=== PATIENT | female | born 1945 | race Caucasian/White ===

== ENCOUNTER 2016-05-15 08:42 | Outpatient (CLI) | payer MEDICARE, BC ==
[~2016-05-15] VITALS: Ht 157.5 cm; Wt 43.6 kg
--- NOTE | ~2016-05-15 | HEMODYNAMI ---
PATIENT:ADEN ROBERT MEDICAL RECORD: [id number] : 47 LOCATION:D[facility] ADMISSION DATE: 05/15/16 Generatedon:05/15/201613:29 Patient name: ADEN ROBERT Patient #: [id number] SSN: [id number] : 1945 Date of study: 05/15/2016 Page: Of Hemodynamic Procedure Report Patient Data Patient Demographics Procedure consent was obtained First Name: ADEN Gender: Female Last Name: JAKOB : 1945 Middle Initial: L Age: 71 year(s) Patient #: [id number] Race: SSN: [id number] Additional ID: [id number] Contact details Address: [address] [place] [address] State: [place] City: [place] Zip code: [address] Past Medical History Allergies Allergen Reaction Date Comments Reported Other allergy 05/15/2016 Dilaudid/pain meds Admission Admission Data Admission Date: 05/15/2016 Admission Time: 8:42 Arrival Date: 05/15/2016 Arrival Time: 11:00 Admit Source: Other Insurance Payor: Medicare Height (in.): 64 BSA: 1.43 (m2) Height (cm.): 162.56 BMI: 16.48 (kg/m2) Weight (lbs.): 96 Weight (kg.): 43.54 Lab Results Lab Result Date: 05/15/2016 Lab Result Time: 0:00 Biochemistry Name Units Result Min Max BUN mg/dl 14 --(--*-)-- 7 18 Creatinine mg/dl 0.9 --(-*--)-- 0.6 1.3 CBC Name Units Result Min Max Hemoglobin g/dl 15 --(-*--)-- 13.5 17.5 Procedure Procedure Types Cath Procedure Diagnostic Procedure PPM/ICD Permanent Pacer Generator Exg. Procedure Description Procedure Date Procedure Date: 05/15/2016 Procedure Start Time: 12:14 Procedure Staff Name Function Citlali Alcantar RT Monitor Buffie Del Rosario RN Nurse Travis Blandon MD Performing Physician Huseyin Nieto MD Assisting physician Tresa Sanchez RT Scrub Procedure Data Cath Procedure Estimated blood loss: 0 ml Procedure Complications No complications Procedure Medications Medication Administration Route Dosage Ancef (1Gm/50ml NS) I.V.P.B 1 g Ancef Irrigation Topical 1 g (1gm/500ml NS) Zofran I.V. 4 mg Versed I.V. 1 mg Versed I.V. 1 mg Hemodynamics Rest BSA: 1.43 (m2) HGB: 15 (g/dl) O2 Consumption: Estimated: 123.35 (ml/min) O2 Cons umption indexed: Estimated:86.26 (ml/min/m) Heart Rate: 54 (bpm) Snapshots Pre Cath Intra NCS Post Cath Vital Signs Time Heart Resp SPO2 NIBP (mmHg) Rhythm Pain Sedation Rate (ipm) (%) Status Level (bpm) 11:57:42 54 17 99 134/66(100) NSR 0 (11) 10(A) , No pain 12:02:00 54 21 98 137/61(93) NSR 0 (11) 10(A) , No pain 12:06:14 54 19 99 141/61(87) NSR 0 (11) 10(A) , No pain 12:10:32 54 16 99 122/56(94) NSR 0 (11) 10(A) , No pain 12:14:40 54 18 98 126/63(100) NSR 0 (11) 10(A) , No pain 12:18:50 59 19 96 130/64(79) NSR 0 (11) 10(A) , No pain 12:23:06 61 19 99 117/53(78) NSR 0 (11) 10(A) , No pain 12:27:15 62 22 99 119/52(77) NSR 0 (11) 10(A) , No pain 12:31:28 85 15 99 107/53(80) NSR 0 (11) 10(A) , No pain 12:35:33 60 18 100 120/55(80) NSR 0 (11) 10(A) , No pain Medications Time Medication Route Dose Verified Delivered Reason Notes Effe ctiveness by by 11:50:27 Ancef I.V.P.B 1 g Travis Emanuelie used for (1Gm/50ml [facility] Connor Del Rosario RN procedure NS) 11:50:39 Ancef Topical 1 g Travis Emanuelie used for Irrigation St. Connor Del Rosario RN procedure (1gm/500ml NS) 12:05:39 Zofran I.V. 4 mg Travis Emanuelie Per pt has [facility]. Connor Del Rosario RN physician nausea with MD medications 12:13:01 Versed I.V. 1 mg Travis Buffie for [facility] Connor Del Rosario RN sedation 12:20:03 Versed I.V. 1 mg [address] [facility] Connor Del Rosario RN sedation Procedure Log Time Note 11:38:14 Pina Del Rosario RN sent for patient. Start room use. 11:38:19 Time tracking: Regular hours 11:38:23 Plan of Care:Hemodynamics will remain stable., Cardiac rhythm will remain stable., Comfort level will be maintained., Respiratory function will remain adequate., Patient/ family verbilizes understanding of procedure., Procedure tolerated without complication., Recovers from procedure without complications.. 11:45:58 Diagnostic Cath Status : Elective 11:46:27 Informed consent obtained and on chart 11:47:02 Patient Height : 162.56 inches 11:47:12 Patient Weight : 43.54 lbs 11:47:58 Arrival Date: 05/15/2016 11:00:00 AM 11:48:04 Insurance Payor : Medicare 11:48:05 Admit Source: Other 11:50:03 Lab Result : Hemoglobin 15 g/dl 11:50:03 Lab Result : Creatinine 0.9 mg/dl 11:50:03 Lab Result : BUN 14 mg/dl 11:50:10 Patient received from Outpatients to [facility] 2 Alert and oriented. Tansferred to table in Supine position. 11:50:11 Correct patient and procedure confirmed by team. 11:50:11 Warm blankets applied, and fouzia hugger turned on for patient comfort. 11:50:12 ECG and BP/O2 sat monitors applied to patient. 11:50:27 Ancef (1Gm/50ml NS) 1 g I.V.P.B was given by Pina Del Rosario RN; used for procedure; 11:50:39 Ancef Irrigation (1gm/500ml NS) 1 g Topical was given by Pina Del Rosario RN; used for procedure; 11:56:26 Vital chart was started 11:56:39 Baseline sample Acquired. 11:56:50 Rhythm: paced 11:56:52 Full Disclosure recording started 11:57:19 H&P Date Dictated: 05/08/2016 Within 30 days and on chart., H&P Addendum completed by physician on day of procedure. (MUST COMPLETE FOR ALL OUTPATIENTS). 11:57:21 Pre-procedure instructions explained to patient. 11:57:22 Family in waiting room. 11:57:25 Patient NPO since Midnight. 11:58:26 Patient allergic to Other allergyDilaudid/pain meds 11:59:55 Is patient on blood thinner?No 12:00:16 Patient diabetic? No. 12:00:29 Snore? No 12:03:21 IV patent on arrival in right forearm with 0.9% NaCl at [facility]. 12:03:24 Lab results completed and on chart. 12:03:32 Left chest area was prepped with chlora-prep and draped in sterile fashion 12:03:41 Alarms reviewed by R. N. 12:03:42 Sharps counted by scrub and verified by R.N. 12:04:47 Medtronic Adapta PPM Dual Generator opened to sterile field. 12:05:39 Zofran 4 mg I.V. was given by Pina Del Rosario RN; Per physician; pt has nausea with medications 12:06:23 Use device set Pacemaker Set 12:06:25 Mepilex Dressing opened to sterile field. 12:06:27 3.0 Vicryl Multipack [id number] opened to sterile field. 12:06:28 5.0 Monocryl PS2 [id number] opened to sterile field. 12:07:22 Previous problem with sedation/anesthesia? Yes NAUSEA 12:07:27 Sleep apnea? No 12:07:29 Deviated septum? No 12:07:30 Opens mouth fully? Yes 12:07:31 Sticks out tongue? Yes 12:07:33 Airway obstruction? No ? 12:07:36 Dentures? No ? 12:11:51 Physician arrived 12:11:59 --------ALL STOP TIME OUT------ 12:12:00 Final Timeout: patient, procedure, and site verified with staff and physician. All members of the team are in agreement. 12:12:03 Left chest site verified by team. 12:12:19 Physical assessment completed. ASA score P 2 - A patient with mild systemic disease as per Huseyin Nieto MD. 12:12:33 Sedation plan: IV Moderate Sedation Versed, Fentanyl 12:13:01 Versed 1 mg I.V. was given by Pina Del Rosario RN; for sedation; 12:14:35 Procedure started. 12:15:09 Medtronic contact representative David Garcia present for procedure. 12:15:20 Grounding pad site Left thigh. 12:15:25 Grounding pad site free from injury. 12:15:35 Lidocaine 1% w/epi to left subclavicular area by Huseyin Nieto MD. 12:15:38 Incision made to left subclavicular area. 12:15:43 Generator pocket made/opened. 12:20:03 Versed 1 mg I.V. was given by Pina Del Rosario RN; for sedation; 12:24:28 PPM Dual was attached to lead(s) and inserted into pocket. 12:24:38 Device pocket was irrigated with Ancef. 12:24:55 Generator was sutured in place with 3-0 vicryl. 12:25:08 Subcutaneous closure was completed with 3-0 vicryl. 12:25:25 Skin closure was completed with 5-0 monocryl. 12:26:16 Parameters--Ventricular P/R Wave: 7.6mV. Current: 0.2mA; Threshold: 0.2V; Impedence: 721OHMS. 12:26:40 Parameters--Atrial P/R Wave: 3.4mV. Current: 0.7mA; Threshold: 0.4V; Impedence: 524OHMS. 12:30:54 Lt Chest incision was dressed with Mepilex dressing. 12:38:02 Vital chart was stopped 12:38:05 Full Disclosure recording stopped 12:38:52 Procedure ended.(Physican Out) 12:40:13 Insertion/operative site no bleeding no hematoma. 12:40:16 Post Procedure Pulses reassessed and unchanged 12:40:21 Post procedure rhythm: unchanged. 12:40:24 Estimated blood loss: 0 ml 12:41:01 End room use (Document Last) 12:41:26 Post procedure instruction explained to patient.Patient verbalizes understanding. 12:41:27 Patient needs reinforcement of post procedure teaching. 12:41:39 Procedure and supply charges have been captured, reviewed, submitted and are correct. 12:41:45 Procedure Complication : No complications 12:41:47 See physician's report for complete and final results. 12:41:55 Report given to Pre/Post Procedure Room. 12:41:58 Patient transfered to Pre/Post Procedure Room with Stretcher. Device Usage Item Name Manufacture Quantity Catalog Hospital Part Current Minimal Lot# / Number Charge Number Stock Stock Serial# Code Medtronic Medtronic 1 [id number] 5 [id number] Adapta EXP PPM Dual 08-27 Generator Mepilex Cardinal 1 [id number] [id number] 5 Dressing Health 3.0 Ethicon 1 [id number] 379160 5 Vicryl Multipack [id number] 5.0 Ethicon 1 [id number] [id number] [id number] [id number] 5 Monocryl PS2 Y495G Signature Audit [place] Stage Time Signature Unsigned Intra-Procedure 05/15/2016 Citlali Alcantar Saima Counts 12:37:59 PM RT(R) RT(R) 05/15/2016 1:23:40 PM Intra-Procedure 05/15/2016 Citlali Alcantar 1:28:56 PM RT(R) Signatures Monitor : Citlali Alcantar RT Signature : Date : Time : [address] [address]
[2016-05-15] MEDS ORDERED: ATIVAN2 MG PO (09:14)
[2016-05-15] MEDS ORDERED: BUTALBITAL-ASP-1 CAP PO (09:14)
[2016-05-15 09:30] VITALS: BP 126/59; Ht 157.5 cm; Wt 43.6 kg
[2016-05-15 09:31] LABS: HEMATOCRIT 44.3 % (36.0-48.0); MCH 31.8 pg (26.0-34.0); MCHC 33.9 g/dL (31.0-37.0); MCV 93.9 fL (80.0-100.0); MEAN PLATELET VOLUME 9.7 fL (7.4-10.4); RBC 4.72 10x6/uL (4.00-5.40); RDW 14.2 % (11.5-14.5); WBC 9.3 10x3/uL (4.8-10.8)
[2016-05-15 09:45] LABS: ANION GAP 15.9 mmol/L (8-16); CALCIUM 9.3 mg/dL (8.5-10.1); CARBON DIOXIDE 23.5 mmol/L (21.0-32.0); CREATININE - SERUM 0.9 mg/dL (0.6-1.3); POTASSIUM - SERUM 4.4 mmol/L (3.5-5.1)
[2016-05-15 10:01] LABS: APTT 28.8 SECONDS (22.8-39.4); INR 1.09 (0.85-1.17)
--- NOTE | 2016-05-15 13:01 | NUR ---
VSS WITH CHEST PAIN DENIED DRESSING TO R/CHEST CDI NO BLEEDING NO HEMATOMA NOTED. TOLERATING ORAL FLUIDS WITH NAUSEA DENIED WILL MONITOR
--- NOTE | 2016-05-15 13:23 | NUR ---
FAMILY AT SIDE WITH NEEDS DENIED VSS CHEST PAIN DENIED WILL MONITOR
--- NOTE | 2016-05-15 13:38 | NUR ---
PIV REMOVED FROM LEFT ARM WITH DRESSING APPLIED PATIENT UP TO GET DRESSED FOR DISCHARGE HOME
--- NOTE | 2016-05-15 13:49 | NUR ---
DISCHARGE INSTRUCTIONS GONE OVER WITH PATIENT AND FAMILY LEFT VIA WC TO PARKING FOR TRANSPORT HOME
--- NOTE | 2016-05-15 14:43 | OP ---
PATIENT NAME: ADEN ROBERT MEDICAL RECORD: [id number] :47 LOCATION:D.CAT ADMISSION DATE: SURGEON: LAKHWINDER PRECIADO MD DATE OF OPERATION: 05/15/2016 SURGEON: Lakhwinder Preciado MD PREOPERATIVE DIAGNOSIS: Sick sinus syndrome, status post pacemaker placement. POSTOPERATIVE DIAGNOSIS: Sick sinus syndrome, status post pacemaker placement. PROCEDURE PERFORMED: Generator pacemaker exchange. ANESTHESIA: Total intravenous anesthesia. COMPLICATIONS: None. SPECIMENS: Pacemaker. Case was clean. ESTIMATED BLOOD LOSS: Minimal. DESCRIPTION OF THE PROCEDURE: After consent was obtained, the patient was taken to the cardiac catheterization suite and placed in the OR table. Next, a timeout was taken to confirm the correct patient and procedure. A 20 cc of local anesthetic were injected in the left chest wall. Left chest wall was prepped and draped in typical sterile fashion. A skin incision made with a 15-blade scalpel. Dissection continued to the dermis and subcutaneous tissue with electrocautery. The capsule of the prior generator was encountered. It was incised with electrocautery and opened with Metzenbaum scissors. The pacemaker was bluntly dissected and removed. The leads were tested with the [employer] device. Once confirmed that the leads were functioning, the new pacemaker generator was placed. It was secured into the previous pocket. The subcutaneous tissue and capsule were closed using 3-0 Vicryl suture. The skin was closed with 5-0 Monocryl, Mastisol and Steri-Strips. At the end of the case, all needle and instrument counts were correct. No complications occurred. The patient was transferred to the recovery room in satisfactory condition. TRANSINT:[id number] Voice Confirmation ID: [id number] DOCUMENT ID: [id number] LAKHWINDER PRECIADO MD at 1443 CC: [id number] DICTATION DATE: 05/15/16 1234 BEET TOPPER: 05/15/16 1314 DEP CLI 05/15/[address] [address]
== END 2016-05-15 13:51 | disposition home or self-care (01) ==
LOC: D.CATH 08:42
PROVIDERS: Internal Medicine Cardiovascular Disease
DX: Z45.010 Encounter for checking and testing of cardiac pacemaker pulse generator [battery] (principal); I49.5 Sick sinus syndrome

== ENCOUNTER 2016-06-19 11:59 | Inpatient (IN) | payer MEDICARE, BC ==
[~2016-06-19] VITALS: Ht 157.5 cm; Wt 42.6 kg
[~2016-06-19 11:59] MED LIST: ATIVAN2 MG PO; BUTALBITAL-ASP-1 CAP PO
[2016-06-19 12:15] VITALS: BP 97/68
--- NOTE | 2016-06-19 12:15 | NUR ---
RECEIVED PATIENT TO ROOM 1215. SHE WAS SETTLED INTO HER BED, EXTRA BLANKET PROVIDED. VSS. CALL LIGHT WITHIN REACH. ENCOURAGED TO CALL FOR ASSISTANCE. WILL REVIED WRITTEN ORDERS AND PROCESS THEM. PATIENT VOICED UNDERSTANDING. SPOUSE AT THE BEDSIDE.
--- NOTE | 2016-06-19 13:45 | NUR ---
REVIEWED ORDERS WITH PATIENT AND ANSWERED QUESTIONS. PT VERBLIZED HER UNDERSTANDING.
--- NOTE | 2016-06-19 14:07 | NUR ---
COMPLETED ENTERING ORDERS. SPOKE TO DR REYES OFFICE AND THEY STATED PT IS AN ESTABLISHED DR MASTESR PT AND THEY WOULD CONTINUE TO SEE PT. CALLED DR ESCOTO'S OFFICE AND REPORTED CONSULT. SEE ORDER TO PERSON I SPOKE TOO.
[2016-06-19 14:44] VITALS: BMI 15.4
[2016-06-19 15:10] LABS: BASOPHILS 0.8 % (0.0-2.0); EOSINOPHILS 1.5 % (0-7); HEMATOCRIT 40.9 % (36.0-48.0); HEMOGLOBIN 13.7 g/dL (12-16); IMMATURE GRANULOCYTES 0.2 % (0-5); LYMPHOCYTES 50.6 % (15-50); MCH 31.6 pg (26.0-34.0); MCHC 33.5 g/dL (31.0-37.0); MCV 94.5 fL (80.0-100.0); MEAN PLATELET VOLUME 9.6 fL (7.4-10.4); MONOCYTES 5.9 % (2-11); PLATELET COUNT 306 10x3/uL (130-400); RBC 4.33 10x6/uL (4.00-5.40); RDW 13.9 % (11.5-14.5); WBC 8.8 10x3/uL (4.8-10.8)
--- NOTE | 2016-06-19 15:20 | NUR ---
PATIENT'S IV ACCESS PLACED IN THE LEFT AC ON THE 4TH ATTEMPT. IVF INITIATED. PATIENT IS RESTING WITH HOB UP 45 DEGREES. THIS DONE AFTER ASSESSMENT AND HISTORY COMPLETE. SPOUSE AT THE BEDISDE. SHE IS WITHOUT COMPLAINTS AT THIS TIME. SHE IS EMOTHIONAL REGARDING FAMILY DRAMA TAKING PLACE OVER THE TELEPHONE. SHE INDICATES THAT CHILDREN ARE THE CAUSE. CALL LIGHT WITHIN HER REACH. ENCOURAGED HER TO CALL WITH ANY NEEDS/QUESTIONS.
[2016-06-19 15:24] LABS: ALBUMIN 3.8 g/dL (3.4-5.0); ANION GAP 14.6 mmol/L (8-16); BILIRUBIN - TOTAL 0.2 mg/dL (0.2-1.3); CALCIUM 8.9 mg/dL (8.5-10.1); CARBON DIOXIDE 26.5 mmol/L (21.0-32.0); POTASSIUM - SERUM 4.1 mmol/L (3.5-5.1); PROTEIN - SERUM 6.6 g/dL (6.4-8.2)
[2016-06-19 15:25] LABS: APTT 28.9 SECONDS (22.8-39.4); INR 1.1 (0.85-1.17); PROTIME 14.1 SECONDS (11.6-15.0)
--- NOTE | 2016-06-19 16:40 | NUR ---
Just back from CT
--- NOTE | 2016-06-19 16:47 | NUR ---
States she will not see Dr. Partida, wants Dr. Vasquez
--- NOTE | 2016-06-19 16:55 | NUR ---
SPOKE TO DR WILLIS ABOUT PT WANTING TO USE HIM INSTEAD OF DR ESCOTO AND WAS TOLD THAT SHE COULD NOT TRANSFER DURING A HOSPITAL STAY PER DR WILLIS OFFICE. WILL EXPLAIN TO PATIENT.
--- NOTE | 2016-06-19 17:20 | NUR ---
PATIENT GIVEN ATIVAN PER REQUEST FOR HER NERVES, MS FOR HER PAIN AND ZOFRAN FOR C/O NAUSEA. SHE IS RESTING IN HER BED WITH HOB UP 45 DEGREES I LEAVE. SHE DENIES FURTHER NEEDS. DISCUSSED IMPORTANCE OF HER CALLING FOR ASSISTANCE TO GET OOB. SHE STATE SHTAT SHE WILL CERTAINLY DO SO. EXPLAINED THAT WE CAN USE A BED ALARM IF SHE FEELS THAT SHE MIGHT FORGET. SHE REFUSES THIS AT THIS TIME.
--- NOTE | 2016-06-19 18:00 | NUR ---
LOVENOX DISCUSSED AND GIVEN.
--- NOTE | 2016-06-19 18:10 | NUR ---
RELEASE OF RESPONSIBILITY FOR BED/CHAIR ALARM EXPLAINED TO AND SIGNED BY PT. PT VERBALIZES UNDERSTANADING. PT SO IN ROOM. REQUESTS PT BE NOT BE SEEN BY DR PRATHER. STATES HAS HAD BAD EXPERIENCE IN PAST WITH DR PRATHER AND STATES DR JEAN BAPTISTE TOLD HIM AND PT THAT PT WOULD BE SEEN BY DR MORAES WHILE IN HOSPITAL. WILL DISCUSS WITH PANTRY GOODS WORKER.
--- NOTE | 2016-06-19 18:21 | NUR ---
JENISE RN, [employer]OND [employer]ER AND SORTER NOTIFIED OF PT AND PT FAMILY CONCERNS OF HAVING DR PRATHER GI PHYSICIAN. STATES WILL CALL FLO IN ADMINISTRATION.
[2016-06-19 18:39] LABS: APPEARANCE SLT CLOUDY (CLEAR); BILIRUBIN NEGATIVE (NEGATIVE); COLOR STRAW (YELLOW); GLUCOSE NEGATIVE (NEGATIVE); KETONE NEGATIVE (NEGATIVE); LEUKOCYTE ESTERASE 2+ (NEGATIVE); NITRITE NEGATIVE (NEGATIVE); PROTEIN NEGATIVE (NEGATIVE); UROBILINOGEN NORMAL (NORMAL)
[2016-06-19 18:40] LABS: BACTERIA MODERATE /hpf (NONE SEEN); EPITHELIAL CELLS 0-5 /hpf (0-5); MUCUS <1+ /lpf (NONE SEEN); RED CELLS - URINE 0-5 /hpf (0-5); WHITE CELLS - URINE >50 /hpf (0-5)
--- NOTE | 2016-06-19 19:02 | NUR ---
Spoke with Felipe Toth Rn unsure why Meek Hernandez was told pt. unable to change to consulting physcian of choice. Spoke with Dr. Peraza she advised to call consult back to office in AM. She will notify office that patient will be seeing Dr. Kumar. Dr. Ghosh notified of cancelled consult. Will go speak with upset patient and family.
[2016-06-19 19:40] VITALS: BP 132/74
--- NOTE | 2016-06-19 19:40 | NUR ---
AWAKE DURING INITIAL ROUNDS. INTRODUCED SELF. V/S TAKEN. ASSESSMENT DONE. STATUS PANCREATITIS. IVF D5NS TO L ac @ 150cc/hr. IV SITE OK. UP AD ALFONZO IN THE ROOM. SPOUSE HERE.
--- NOTE | 2016-06-19 21:05 | NUR ---
UP AD ALFONZO TO THE BATHROOM.
--- NOTE | 2016-06-19 23:09 | NUR ---
ATIVAN 0.5mg IV GIVEN PER PT's REQUEST TO HELP HER SLEEP. NEW IV BAG HUNG. SEE E-MAR.
[2016-06-20 01:00] VITALS: BP 112/75
--- NOTE | 2016-06-20 01:06 | NUR ---
PAIN LEVEL "5"/10 FROM BACK/ABD. MORPHINE 4mg IVP GIVEN FOR PAIN CONTROL. ZOFRAN ALSO GIVEN FOR C/O NAUSEA. SEE E-MAR.
--- NOTE | 2016-06-20 03:08 | NUR ---
APPEARS TO BE ASLEEP. LEFT UNDISTURBED.
[2016-06-20 04:15] VITALS: BP 134/73
--- NOTE | 2016-06-20 04:15 | NUR ---
EYES CLOSED. AWAKENED FOR V/S--STABLE.
--- NOTE | 2016-06-20 06:05 | NUR ---
MEDICAL TECH HERE TO DRAW AM LAB. SLEPT FAIRLY DURING THE NIGHT. CONTINUING PLAN OF CARE.
[2016-06-20 06:27] LABS: EOSINOPHILS 3.8 % (0-7); HEMATOCRIT 39.8 % (36.0-48.0); HEMOGLOBIN 13.1 g/dL (12-16); IMMATURE GRANULOCYTES 0.2 % (0-5); LYMPHOCYTES 39.9 % (15-50); MCH 30.9 pg (26.0-34.0); MCHC 32.9 g/dL (31.0-37.0); MCV 93.9 fL (80.0-100.0); MEAN PLATELET VOLUME 10.1 fL (7.4-10.4); MONOCYTES 10.8 % (2-11); NEUTROPHILS 44.3 % (40-80); PLATELET COUNT 309 10x3/uL (130-400); RBC 4.24 10x6/uL (4.00-5.40); RDW 13.8 % (11.5-14.5)
[2016-06-20 07:00] LABS: ALBUMIN 3.3 g/dL (3.4-5.0); ALKALINE PHOSPHATASE 87 U/L (46-116); ALT (SGPT) 19 U/L (10-68); AMYLASE - SERUM 41 U/L (25-115); CALC OSMOLALITY 276 mosm/kg (275-300); CALCIUM 8.3 mg/dL (8.5-10.1); CARBON DIOXIDE 26.5 mmol/L (21.0-32.0); CHLORIDE - SERUM 107 mmol/L (98-107); CREATININE - SERUM 0.8 mg/dL (0.6-1.3); GLUCOSE 116 mg/dL (74-106); LIPASE 89 U/L (73-393); POTASSIUM - SERUM 3.5 mmol/L (3.5-5.1); PROTEIN - SERUM 6.2 g/dL (6.4-8.2); SODIUM 139 mmol/L (136-145); UREA NITROGEN 8 mg/dL (7-18); eGFR NON AFRICAN AMERICAN 75 mL/min (90-120)
[2016-06-20 07:50] VITALS: BP 152/80
[2016-06-20 07:55] VITALS: BP 131/75
--- NOTE | 2016-06-20 07:56 | NUR ---
MEDS GIVEN FOR INCREASED PAIN AND NASUSEA. C/O ABD DISCOMFORT ( UPPER). SITTING UP ON BED. ROCKING BACK AND FORTH. AT BEDSIDE.
--- NOTE | 2016-06-20 08:44 | NUR ---
pt much improved. states she does not want swallow study done when approached by [facility]. also refused to have room cleaned both r/t nausea.
--- NOTE | 2016-06-20 10:31 | NUR ---
ROOM CHECK. PT IN BED WITH EYES CLOSED. RESP NON-LABORED. AT BEDSIDE.IV INFUSING WITHOUT PROBLEMS.
[2016-06-20 10:55] VITALS: Ht 157.5 cm; Wt 42.6 kg
[2016-06-20 12:40] VITALS: BP 135/62
--- NOTE | 2016-06-20 14:20 | NUR ---
Is the patient Alert and Oriented? Yes 0 * How many steps to enter\exit or inside your home? 0 0 * PCP DR. JEAN BAPTISTE 0 * Pharmacy NONE IN PARTICULAR 0 * Preadmission Environment Home with Family 0 * ADLs Independent 0 * Equipment Cane Walker Wheelchair 0 * Other Equipment PATIENT STATES SHE HAS THEM BUT DOES NOT USE THEM 0 * List name and contact numbers for known caregivers / representatives who currently or will assist patient after discharge: SPOUSE: LUIS [phone] 0 * Community resources currently utilized None 0 * Additional services required to return to the preadmission environment? No 0 * Can the patient safely return to the preadmission environment? Yes 0 * Has this patient been hospitalized within the prior 30 days at any hospital? No PATIENT IS AWAKE AND ALERT. SHE STATES SHE LIVES AT HOME WITH HER , LUIS. SHE STATES HE WILL BE AVAILABLE TO DRIVE HER HOME AT DISCHARGE. PATIENT'S PCP IS DR. JEAN BAPTISTE. SHE STATES SHE GETS HER MEDS AT NO PARTICULAR PHARMACY. HE GETS WRITTEN RX AND GETS FROM [facility]. SHE HAS A WALKER, CANE AND W/C BUT DOES NOT USE THEM. SHE DENIES EVER HAVING HOME HEALTH. PATIENT STATES THERE ARE NO STEPS TO ENTER HER HOME. NO DISCHARGE NEEDS IDENTIFIED AT THIS TIME.
--- NOTE | 2016-06-20 15:05 | NUR ---
PT WITH SMALL AMT OF GREEN EMESIS ON WASHCLOTH. ZOFRAN DRIP WAS STARTED.
--- NOTE | 2016-06-20 16:30 | NUR ---
PATIENT SITTING UP IN HER BED, HOB ELEVATED 45 DEGREES. SPOUSE AT [facility] KENZIE AND THE 2 ARE VISITING. HER IVF INFUSING PER ORDERS. SHE STATES THAT SHE REMAINS NAUSEATED AND IS FEARFUL THAT SHE WILL HAVE TO HAVE A NGT PLACED. ENCOURAGED HER TO ALLOW THE ZOFRAN TIME TO WORK, REST AND WAIT TO SEE WHAT THE GI DOCTOR TELLS HER TOMORROW. SHE WAS LESS ANXIOUS WHEN I LEFT.
--- NOTE | 2016-06-20 17:48 | NUR ---
PATIENT RESTING QUIETLY WITH EYES CLOSED. SHE DOESN'T AWAKEN TO MY ENTRY BUT DOES AROUSE TO LOUD VOICE AND TOUCH. NO NEEDS NOTED. SPOUSE AT THE BEDSIDE/
--- NOTE | 2016-06-20 19:50 | NUR ---
SHIFT ASSESSMENT AND VITAL SIGNS DONE. PT SITTING UP ON SIDE OF BED. STATES SHE HAS JUST BEEN TO BATHROOM. IV SITE PATENT. PT C/0 PAIN AND SOME NAUSEA. STATES SHE DOES NOT WANT PAIN MEDS AT THIS TIME AND NAUSEA IS BETTER. NO EMESIS NOTED. BOWEL SOUNDS PRESENT AND SLIGHT ABDOMINAL TENDERNESS NOTED WHEN ASCULTATING ABDOMEN. FRESH ICE CHIPS PROVIDED. PT DENIES ANY REQUESTS AT THIS TIME.
--- NOTE | 2016-06-20 21:00 | NUR ---
ROOM CHECK. PT LYING IN BED WITH HOB ELEVATED X 30DEGREES. SIDE RAILS UP X 2. STRAIGHTENED BLANKETS FOR PT. PT DENIES ANY REQUESTS AT THIS TIME. STATES SHE IS PLANNING TO TRY TO REST.
--- NOTE | 2016-06-20 22:00 | NUR ---
ROOM CHECK. PT LYING IN BED RESTING QUIETLY. EASILY AROUSED. PT REQUESTS THAT DOOR BE LEFT OPEN. STATES "THE LIGHT AND VOICES ARENT BOTHERING ME". DENIES ANY REQUESTS AT THIS TIME.
--- NOTE | 2016-06-20 23:30 | NUR ---
CALLED TO ROOM. PT REQUESTS ATIVAN. ATIVAN 0.5 MG GIVEN IVP AT THIS TIME. IV SITE PATENT BEFORE AND AFTER IV MED GIVEN. PT STATES "IM GETTING MEDICINE FOR NAUSEA IN MY IV ARENT I?" INFORMED PT THAT YES, SHE IS GETTING ZOFRAN(NAUSEA MED) CONTINUOUSLY. PT STATES "JUST CHECKING TO MAKE SURE". PT DENIES ANY OTHER REQUESTS AT THIS TIME.
[2016-06-21 00:05] VITALS: BP 117/62
--- NOTE | 2016-06-21 00:05 | NUR ---
VITAL SIGNS DONE. PT ASLEEP ON LEFT SIDE WHEN NURSE ENTERED ROOM. EASILY AWAKENED BUT GROGGY. SIDERAILS UP X 2. PT DENIES ANY REQUESTS AT THIS TIME.
--- NOTE | 2016-06-21 01:51 | NUR ---
NEW IV BAG UP AT THIS TIME. ASSISTED PT WITH IV POLE TO BATHROOM. NOTED THAT PT APPEARS TO BE SLIGHTLY UNSTEADY WHILE WALKING. ASSISTED BACK TO BED. PT STATES "I NEED SOMETHING". WHEN ASKED WHAT, PT STATES "IM NOT SURE". ADVISED PT THAT SHE CAN ONLY HAVE ICE CHIPS. STATES "I DONT NEED ANY RIGHT NOW". PT STATES "HOW ABOUT MORPHINE? HAS IT BEEN A WHILE SINCE I HAD THAT?" ADVISED PT THAT NURSE WILL CHECK ON AND LET HER KNOW. PT APPEARS TO BE GROGGY AND SLOW TO SPEECH. ADVISED PT NOT TO GET UP ON HER OWN TO BATHROOM/TO CALL NURSE. SIDERAILS UP X 2.
--- NOTE | 2016-06-21 02:00 | NUR ---
TO PTS ROOM TO REPORT ON MORPHINE INFO REQUESTED BY PT. PT ASLEEP/RESTING QUIETLY ON BACK. DID NOT AROUSE WHEN NURSE WALKED IN ROOM/TO BEDSIDE OR WHEN IV PUMP WAS CHECKED. WILL NOT GIVE MORPHINE AT THIS TIME DUE TO PTS SLEEPINESS. WILL AWAIT PTS FURTHER REQUEST.
--- NOTE | 2016-06-21 03:30 | NUR ---
ROOM CHECK. PT RESTING QUIETLY WITH EYES CLOSED. NO S/S OF DISTRESS NOTED.
[2016-06-21 04:25] VITALS: BP 107/52
--- NOTE | 2016-06-21 04:25 | NUR ---
VITAL SIGNS DONE. PT SLOW TO AWAKE BUT ABLE TO ANSWER QUESTIONS WITHOUT APPARENT DIFFICULTY ONCE AWAKE. DENIES ANY REQUESTS AT THIS TIME.
--- NOTE | 2016-06-21 06:10 | NUR ---
TO PTS ROOM. IV INTAKE DONE AND PUMPS CLEARED. ASSISTED PT TO BATHROOM AND BACK TO BED. REMOVED ICE CHIPS AND OUTSIDE DRINKS FROM BEDSIDE AND INFORMED PT THAT SHE IS NOW NPO. NOTE PLACED ON DOOR WITH NPO INFO. PT STATES THAT SHE IS STILL HAVING A LITTLE NAUSEA. WHEN ASKED ABOUT HER PREFERRED PHARMACY, PT STATES SHE DOES NOT HAVE ONE. THEY GET A PAPER SCRIPT AND CALL FOR [facility]. NO REQUEST NOTED AT THIS TIME.
--- NOTE | 2016-06-21 06:45 | NUR ---
SBAR HANDOFF RECEIVED FROM Flor JOHNSON RN. PATIENT IS IN ED VISITING WHO IS BEING ADMITTED TO HOSPITAL AND SAID TO BE CRITICAL CONDITION
--- NOTE | 2016-06-21 06:50 | NUR ---
SBAR HANDOFF RECEIVED FROM Flor JOHNSON RN. REMAINS STABLE WITH NO SIGNS OF RESP DISTRESS OR OTHER DISTRESS NOTED OR REPORTED.
--- NOTE | 2016-06-21 07:30 | NUR ---
VSS. SUPINE IN BED WITH HOB ELEVATED 20 DEGREES. SKIN WARM DRY AND PINK. ALERT ORIENTED X 4. COMPLAINS OF PAIN AND NAUSEA. VOMITING LIGHT TO DARK BROWN EMESIS. LEFT AC PIV PATENT WITH PRIMARY FLUID AND ZOFRAN
[2016-06-21 07:46] LABS: BASOPHILS 0.4 % (0.0-2.0); EOSINOPHILS 2.3 % (0-7); HEMATOCRIT 37.2 % (36.0-48.0); HEMOGLOBIN 12.3 g/dL (12-16); LYMPHOCYTES 49.6 % (15-50); MCHC 33.1 g/dL (31.0-37.0); MCV 93.7 fL (80.0-100.0); MEAN PLATELET VOLUME 9.9 fL (7.4-10.4); MONOCYTES 9.4 % (2-11); NEUTROPHILS 38.3 % (40-80); PLATELET COUNT 298 10x3/uL (130-400); RBC 3.97 10x6/uL (4.00-5.40); RDW 13.5 % (11.5-14.5)
[2016-06-21 08:16] LABS: ALKALINE PHOSPHATASE 85 U/L (46-116); AMYLASE - SERUM 33 U/L (25-115); BILIRUBIN - TOTAL 0.23 mg/dL (0.2-1.3); CALCIUM 8.1 mg/dL (8.5-10.1); CARBON DIOXIDE 26.9 mmol/L (21.0-32.0); CHLORIDE - SERUM 109 mmol/L (98-107); CREATININE - SERUM 0.7 mg/dL (0.6-1.3); GLUCOSE 112 mg/dL (74-106); LIPASE 79 U/L (73-393); MAGNESIUM - SERUM 1.8 mg/dL (1.8-2.4); PHOSPHOROUS 2.8 mg/dL (2.5-4.9); POTASSIUM - SERUM 3.4 mmol/L (3.5-5.1); PRE-ALBUMIN 16.9 mg/dL (18.0-35.7); PROTEIN - SERUM 5.7 g/dL (6.4-8.2); SODIUM 142 mmol/L (136-145); T4 THYROXIN - FREE 1.04 ng/dL (0.76-1.46); THYROID STIMULATING HORMONE 0.57 uIU/mL (0.36-3.74); eGFR NON AFRICAN AMERICAN 88 mL/min (90-120)
[2016-06-21 08:18] LABS: ALT (SGPT) 40 U/L (10-68); CALC OSMOLALITY 280 mosm/kg (275-300); UREA NITROGEN 3 mg/dL (7-18)
[2016-06-21 08:50] LABS: INR 1.08 (0.85-1.17); PROTIME 13.8 SECONDS (11.6-15.0)
--- NOTE | 2016-06-21 08:55 | NUR ---
REPORTS ANXIETY LESS. SLEEPING AT INTERVALS. NO SIGNS OF DISTRESS
--- NOTE | 2016-06-21 09:30 | NUR ---
REMAINS STABLE. SLEEPING AT INTERVALS. ATTENTIVE AT BEDSIDE.
--- NOTE | 2016-06-21 10:49 | NUR ---
Supervisor Rose Grading Corina states patient does not want her room cleaned, just bulk picker trash.
[2016-06-21 11:30] VITALS: BP 128/61
--- NOTE | 2016-06-21 11:30 | NUR ---
REMAINS STABLE. COMPLAINING OF PAIN. MORPHINE GIVEN. VOMITED APPROX 100ML GREEN EMESIS IN LAST 10 MIN
--- NOTE | 2016-06-21 12:00 | NUR ---
COMPLAINS OF PAIN AT LEFT AC IV SITE AFTER POTASSIUM IVF STARTED. IV RATE SLOWED TO 50ML/HR
--- NOTE | 2016-06-21 12:30 | NUR ---
REPORTS RELIEF FROM PAIN BUT STILL ANXIOUS. INFORMED CANNOT GIVE LORAZEPAM YET. NO SIGNS OF DISTRESS. SLEEPING AT INTERVALS.
--- NOTE | 2016-06-21 13:34 | NUR ---
NOTIFIED SPEECH THERAPY REGARDING CONSULT; STATES PATIENT REFUSES MULTIPLE TIMES AND ST HAS REPORTED SAME TO DR JEAN BAPTISTE.
--- NOTE | 2016-06-21 13:52 | NUR ---
ALL IVF STOPPED AND IVF CHANGED TO LR PER REQUEST GI LAB. 1ST DOSE POTASSIUM COMPLETED.
--- NOTE | 2016-06-21 14:07 | NUR ---
PEPCID GIVEN SLOW IVP
--- NOTE | 2016-06-21 15:04 | NUR ---
SECOND DOSE POTASSIUM STARTED AND ZOFRAN IV INFUSION RESUMED SINCE GI LAB HAS NOT COME FOR PATIENT YET. LR STOPPED. POTASSIUM SET TO INFUSE AT 50ML/HR PER IV PUMP PATIENT COMPLAINS OF PAIN IN IV SITE WHEN RATE FASTER.
--- NOTE | 2016-06-21 16:00 | NUR ---
remains stable, sleeping at intervals. no signs of resp distress or other distress noted or reported.
--- NOTE | 2016-06-21 16:30 | NUR ---
vomiting green emesis approx 100ml. GI LAB NOTIFIED THAT PEPCID GIVEN AT 1407 ORDERED WHEN GI LAB PERSONNEL CALLED TO HAVE PREMED GIVEN. SPOKE WITH ANESTHESIA PERSONNEL IN GI LAB WHO STATE THAT PATIENT WILL BE RETRIEVED SHORTLY FOR NEXT IN LINE EGD. PATIENT NOTIFIED OF SAME
--- NOTE | 2016-06-21 16:55 | NUR ---
TO GI LAB PER BED. IVF STOPPED. SALINE LOCK LEFT AC FLUSHED WITH SALINE. LR 1 LITER WITH ANESTHESIA EXTENSION SENT WITH PATIENT. GI LAB PERSONNEL NOTIFIED THAT PEPCID GIVEN @1407. SBAR HANDOFF TO GI PERSONNEL. REMAINS STABLE WITH LT AC PATENT PIV AND NO SIGNS OF COMPLICATIONS EXCEPT SLIGHT REDNESS AT PERIPHERY. AT BEDSIDE REQUESTS PIV SITE CHANGE IN GI LAB DUE TO SITE TROUBLESOME WHEN PATIENT BENDS ELBOW. NO SIGNS OF RESP DISTRESS OR OTHER DISTRESS NOTED. PATIENT REMAINS NPO.
--- NOTE | 2016-06-21 17:47 | NUR ---
1745 20 GAUE IV STARTED 1 STICK GOOD BLOOD RETURN RT OUTER ARM 1 STICK NO REDNESS OR SWELLING IV SALINE LOCKED.
[2016-06-21 18:25] VITALS: BP 141/75
--- NOTE | 2016-06-21 18:25 | NUR ---
RECEIVED FROM GI LAB PER BED. ALERT/ORIENTED X 4. SKIN WARM DRY AND PINK. PIV LEFT AC PATENT WITH LR WHICH WAS STOPPED. IV k+CL RESUMED AT 50ML/HR AND ZOFRAN RESUMED AT 4.6ML/HR PER IV PUMPS TO RIGHT FOREARM 20 G ANGIOCATH SALINE LOCK. NO SIGNS OF COMPLICATIONS AT IV SITES. ATTENTIVE AT BEDSIDE.
--- NOTE | 2016-06-21 19:35 | NUR ---
POTASSIUM IVPB HUNG AT THIS TIME. INFUSING AT 100 ML/HR. IV SITE IN RIGHT FOREARM PATENT. PTS IN ROOM AT THIS TIME. VOICES CONCERNS ABOUT NOT GETTING TO SEE MD TODAY. STATES "THEY TOLD HER ABOUT HER TEST BUT SHE WAS OUT OF IT AND DOESNT REMEMBER". MOVED IV POLE TO LEFT SIDE OF BED FOR EASIER TRANSPORT TO BATHROOM. ADVISED PT THAT NURSE WILL RETURN SHORTLY FOR VITALS/ASSESSMENT.
[2016-06-21 19:50] VITALS: BP 131/68
--- NOTE | 2016-06-21 19:50 | NUR ---
ASSESSMENT/VITAL SIGNS DONE. ASSISTED PT TO BATHROOM AND BACK TO BED. PT ABLE TO AMBULATE FAIRLY WELL BUT DID NOTE THAT PT HOLDS IV POLE AND DOOR FRAME FOR ASSISTANCE. ADVISED PT TO CALL FOR ASSISTANCE TO BATHROOM IF SHE IS FEEDING UNSTEADY. PT C/O PAIN AND REQUESTS PAIN MED. WILL CHECK ON AND GET TO PT MAHAMED.
--- NOTE | 2016-06-21 20:15 | NUR ---
MORPHINE IVP GIVEN AT THIS TIME FOR PAIN LEVEL 7. PT STATES "I HOPE THAT HELPS ME RELAX A LITTLE". PT CONTINUES TO HAVE INTERMITTENT BOUTS OF NAUSEA BUT NO EMESIS.
--- NOTE | 2016-06-21 20:30 | NUR ---
CALLED TO ROOM. PT STATES "I THINK I WILL TRY ONE OF THOSE POPSICLES THAT YOU SAID I COULD HAVE". HALF OF A BANANA POPSICLE PROVIDED. PT TO LET NURSE KNOW IF UNABLE TO TOLERATE/THROWS UP AFTER EATING. PT DENIES ANY OTHER NEEDS AT THIS TIME.
--- NOTE | 2016-06-21 21:02 | NUR ---
POTASSIUM IVPB(# 4 IN ELECTRALYTE PROTOCOL) HUNG AT THIS TIME. IV SITE REMAINS PATENT.
--- NOTE | 2016-06-21 22:10 | NUR ---
#1 MAGNESIUM SULFATE IVPB HUNG UP AT THIS TIME. FRESH TUBING USED/PRIMED AND CONNECTED TO PRIMARY IV(D5NS). IV SITE REMAINS PATENT AT THIS TIME. PT REPORTS THAT SHE HAS NOT THROWN UP THE POPSICLE. STATES SHE HAS BURPED AND FELT A LITTLE NAUSEATED BUT NO EMESIS. OFFERED OTHER CLEAR LIQUIDS. PROVIDED ICE CHIPS PER PTS REQUEST. PT STATES "I MIGHT TRY SOME JELLO IN A LITTLE WHILE" ADVISED PT TO CALL NURSE NEEDED.
--- NOTE | 2016-06-21 23:09 | NUR ---
#2 MAGNESIUM SULFATE BAG HUNG AT THIS TIME. IV SITE REMAINS PATENT. ASSISTED PT TO BATHROOM AND BACK TO BED. REQUESTS ATIVAN TO HELP HER REST/RELAX. WILL GIVE MAHAMED.
--- NOTE | 2016-06-21 23:24 | NUR ---
ATIVAN 0.5 MG IVP GIVEN AT THIS TIME. PAUSED PRIMARY IV AND ZOFRAN DRIP AND FLUSHED TUBING WITH SALINE. THEN ADMINISTERED ATIVAN. FLUSHED TUBING AFTER ATIVAN AND RESTARTED BOTH IV PUMPS/FLUIDS. IV SITE PATENT. NO REQUESTS AT THIS TIME.
[2016-06-22 00:15] VITALS: BP 143/81
--- NOTE | 2016-06-22 00:15 | NUR ---
VITAL SIGNS DONE. PT LYING ON BACK WITH HOB ELEVATED X 30DEGREES. EASILY AWAKENED WHEN NURSE ENTERED ROOM. DENIES ANY NEEDS AT THIS TIME.
--- NOTE | 2016-06-22 00:49 | NUR ---
NEW BAG OF D5NS HUNG AT THIS TIME. IV SITE PATENT. NO REQUESTS AT THIS TIME.
--- NOTE | 2016-06-22 02:00 | NUR ---
ROOM CHECK. PT LYING ON RIGHT SIDE WITH EYES CLOSED. NO S/S OF DISTRESS NOTED.
[2016-06-22 04:20] VITALS: BP 141/67
--- NOTE | 2016-06-22 04:20 | NUR ---
VITAL SIGNS DONE. PT ASLEEP BUT EASILY AWAKENED WHEN NURSE ENTERED ROOM. PT STATES SHE IS NOT EXPERIENCING NAUSEA CURRENTLY. STATES THAT SHE SEEMS TO GET NAUSEATED WITH MOVEMENT/ACTIVITY. WHEN SHE IS RESTING/LYING STILL, SHE IS LESS LIKELY TO FEEL QUEASY. FRESH ICE/ICE WATER PROVIDED. PT DENIES ANY OTHER COMPLAINTS AT THIS TIME.
--- NOTE | 2016-06-22 05:27 | NUR ---
LAB HERE FOR AM BLOOD TESTS.
--- NOTE | 2016-06-22 06:03 | NUR ---
ROOM CHECK. PT LYING ON BACK IN BED--AWAKE AND ALERT AND WATCHING TV. DENIES ANY NEEDS/COMPLAINTS AT THIS TIME. OFFERRED LIQUIDS AND WAS INFORMED THAT PT PLANS TO WAIT UNTIL BREAKFAST COMES TO TRY TO EAT/DRINK. NO S/S OF DISTRESS NOTED.
--- NOTE | 2016-06-22 06:20 | NUR ---
RADIOLOGY HERE. ABDOMEN XRAY DONE AT THIS TIME.
[2016-06-22 06:43] LABS: BASOPHILS 0.4 % (0.0-2.0); HEMATOCRIT 39.6 % (36.0-48.0); HEMOGLOBIN 13.4 g/dL (12-16); LYMPHOCYTES 46.2 % (15-50); MCH 31.2 pg (26.0-34.0); MCHC 33.8 g/dL (31.0-37.0); MCV 92.1 fL (80.0-100.0); MEAN PLATELET VOLUME 10.6 fL (7.4-10.4); MONOCYTES 13.4 % (2-11); PLATELET COUNT 308 10x3/uL (130-400); RDW 13.4 % (11.5-14.5); WBC 7.5 10x3/uL (4.8-10.8)
[2016-06-22 07:06] LABS: ALBUMIN 3.4 g/dL (3.4-5.0); ALKALINE PHOSPHATASE 100 U/L (46-116); ALT (SGPT) 56 U/L (10-68); BILIRUBIN - TOTAL 0.36 mg/dL (0.2-1.3); CALC OSMOLALITY 275 mosm/kg (275-300); CALCIUM 8.6 mg/dL (8.5-10.1); CARBON DIOXIDE 26.4 mmol/L (21.0-32.0); CHLORIDE - SERUM 104 mmol/L (98-107); CREATININE - SERUM 0.6 mg/dL (0.6-1.3); GLUCOSE 114 mg/dL (74-106); PHOSPHOROUS 2.2 mg/dL (2.5-4.9); POTASSIUM - SERUM 3.5 mmol/L (3.5-5.1); PROTEIN - SERUM 6.7 g/dL (6.4-8.2); SODIUM 140 mmol/L (136-145); UREA NITROGEN 2 mg/dL (7-18); eGFR NON AFRICAN AMERICAN > 90 mL/min (90-120)
[2016-06-22 07:45] VITALS: BP 134/72
--- NOTE | 2016-06-22 07:45 | NUR ---
IN BED. RESP WITHOUT DISTRESS. ABD FLAT AND SOFT. IV PATENT TO RT FOREARM. NOTED ZOFRAN DRIP INFUSING AT 4.7ML/HR. D5NS INFUSING AT 150ML/HR. AT BEDSIDE.
--- NOTE | 2016-06-22 08:48 | NUR ---
PT SITTING UP IN BED. TALKING WITH . RATES SIPS AT COLA AND H2O.
--- NOTE | 2016-06-22 10:10 | NUR ---
REMOVED PATIENT'S EUCEDA CATHETER AFTER DEFLATING THE BALLOON AND GIVING EXPLANATION OF WHAT WE WERE DOING. EUCEDA FULLY INTACT UPON REMOVAL. 300CC OF URINE EMPTIED FROM COLLECTION BAG. IV SL TO THE LEFT HAND REMOVED PER REQUEST DUE TO IRRITATION. DISCUSSED THE POC FOR THE DAY AND THE PATIENT EXPRESSES UNDERSTANDING.
--- NOTE | 2016-06-22 13:33 | NUR ---
NO COMPLAINTS VOICED. TALKING AT LENGTH WITH THIS NURSE. STATES SHE FEELS FULL OUP AND ICE CREAM. WANTS TO WAIT ON TO RETURN WITH CLOTHES BEFORE BATH
[2016-06-22 13:43] VITALS: BP 128/74
--- NOTE | 2016-06-22 17:12 | NUR ---
STATES PAIN REMAINS ABOUT A 3/10. DOES NOT WANT PAIN MED AT THIS TIME
[2016-06-22 19:20] VITALS: BP 127/76
--- NOTE | 2016-06-22 19:20 | NUR ---
RCVD PT FROM Viktoriya PINEDA RN. PT AAOX4. PERRLA. SKIN C/D/I. PT LYING ON BACK, HOB 60 DEGREES. PT DENIES PAIN AT THIS TIME. NEW BACK OF D5NS UP WITH NEW TUBING @ 125ML/HR WITH MAG SULFATE IVPB PER ORDERS. SEE EMAR. IV ZOFRAN @ 4.7ML/HR PER ORDERS. SEE EMAR. LUNGS CLEAR = X2. BOWEL SOUNDS ACTIVE X4. PIV TO RT FOREARM NOTED TO BE C/D/I WITH NO ERYTHEMA OR EDEMA TO SITE. PT DENIES NEEDS AT THIS TIME. BED LOW, WHEELS LOCKED, CL IN REACH, SIDE RAILS UP X2. WILL CONTINUE POC.
--- NOTE | 2016-06-22 20:23 | NUR ---
PT RESTING QUIETLY AT THIS TIME WITH EYES CLOSED. RESPIRATIONS EVEN, NON-LABORED. NO ACUTE DISTRESS NOTED AT THIS TIME. BED LOW. PHONE AND CALL LIGHT IN REACH. SRX2.
--- NOTE | 2016-06-22 21:10 | NUR ---
PT SITTING UP IN BED AT THIS TIME. DENIES NEEDS. BED LOW. PHONE AND CALL LIGHT IN REACH. SRX2.
--- NOTE | 2016-06-22 22:44 | NUR ---
PT SITTING UP IN BED WATCHING TV AT THIS TIME. DENIES NEEDS. BED LOW. PHONE AND CALL LIGHT IN REACH. SRX2.
[2016-06-23] VITALS: BP 117/70
--- NOTE | 2016-06-23 | NUR ---
PT RESTING QUIETLY AT THIS TIME WITH EYES CLOSED. AROUSED EASILY. VSS. PT DENIES NEEDS AT THIS TIME. BED LOW. PHONE AND CALL LIGHT IN REACH. SRX2.
[2016-06-23 04:14] VITALS: BP 118/70
--- NOTE | 2016-06-23 04:14 | NUR ---
PT RESTING QUIETLY AT THIS TIME. AROUSED EASILY. DENIES NEEDS. BED LOW. PHONE AND CALL LIGHT IN REACH. SRX2.
--- NOTE | 2016-06-23 05:15 | NUR ---
PT RESTING QUIETLY AT THIS TIME WITH EYES CLOSED. RESPIRATIONS EVEN, NON-LABORED. NO ACUTE DISTRESS NOTED AT THIS TIME. BED IN LOWEST. PHONE AND CALL LIGHT IN REACH. SRX2.
--- NOTE | 2016-06-23 06:29 | NUR ---
ROCEPHIN IVPB INITIATED AT THIS TIME. PT RESTING QUIETLY WITH EYES CLOSED. RESPIRATIONS EVEN, NON-LABORED. NO ACUTE DISTRESS NOTED AT THIS TIME. BED LOW. PHONE AND CALL LIGHT IN REACH. SRX2.
--- NOTE | 2016-06-23 07:39 | NUR ---
RESTING IN BED WATCHING TV AND TALKING ON PHONE. STATES PAIN LEVEL 5 BUT REFUSES PAIN MEDICATION THAT WAS OFFERED ORDERED. PT ASSESSED AT THIS TIME. IV ANTIBIOTIC RUNNING FREELY TO RIGHT FORARM PATENT WITH NO EDEMA OR REDNESS NOTED. S/R UP X 2, PHONE AND CALL LIGHT WITHIN REACH. STATES NO NEEDS AT THIS TIME. WILL CONTINUE TO MONITOR.
--- NOTE | 2016-06-23 08:31 | NUR ---
TO ROOM ANSWER TO CALL LIGHT. PT WITH VIA PHONE EXPRESSED THE WISH TO REMAIN ON THIS FLOOR FOR THE REMAINDER OF HER CARE. THIS NURSE RELAYED THE INFORMATION AND RN SPOKE WITH THEM ALSO.
[2016-06-23 09:07] VITALS: BP 128/72
--- NOTE | 2016-06-23 09:15 | NUR ---
PROTONIX WAS GIVEN IV PUSH FOR AMANDA BRINK. IV INTACT AND PATENT.
[2016-06-23 09:17] LABS: FOLATE (FOLIC ACID) - SERUM 2.6 ng/mL (>3.0)
--- NOTE | 2016-06-23 09:30 | NUR ---
Visiting with patient denies needs. IV infusing without difficulty. Pt cheerful and happy with care. No acute distress noted at this time.
--- NOTE | 2016-06-23 09:35 | NUR ---
TO ROOM. MEDICATION GIVEN ORDERED AND DIRECTED. RN LISA ADMINISTERED IV PUSH PROTONICS. STATES THAT SHE DOES NOT REMEMBER TAKING FLORASTAR BEFORE BUT HAS ALSO STATED TWICE TO THIS NURSE THAT SHE "DIDN'T KNOW WHERE SHE WAS" THIS MORNING AND THAT "I HAD TO ASK SOMEONE".
--- NOTE | 2016-06-23 10:43 | NUR ---
SITTING IN BED LOOKING AT HER PHONE. STATES NO NEEDS AT THIS TIME. S/R UP X 2, BED IN LOWEST POSITION, PHONE AND CALL LIGHT WITHIN REACH. WILL CONTINUE TO MONITOR.
--- NOTE | 2016-06-23 11:45 | NUR ---
ON PHONE WHEN ENTERED ROOM. STATES DR WILLIS WAS TO ROOM AND THAT HE "SAYS THAT I SHOULD BE ABLE TO GO HOME AND I REALLY WANT TO GO HOME. WILL YOU SEE IF YOU CAN GET AHOLD OF MY OTHER DR'S OFFICE AND LET THEM KNOW?" WILL FOLLOW UP ON HER REQUEST.
--- NOTE | 2016-06-23 12:28 | NUR ---
Nutrition Follow Up: Chart reviewed. Pt is eating 48% meal avg on a full liquid diet. Per GI note N/V is resolved and epigastric pain has improved. I>O. Labs noted. Meds noted including D5 NS @ 150 ml/hr. Pt with fair po intake at this time. Rec consider an appetite stimulant to continue to increase po intake and aid in preventing further wt loss. RD following.
--- NOTE | 2016-06-23 12:45 | NUR ---
UP TO BATHROOM. PUTTING ON FRESH CLOTHES. WILL CHECK BACK.
--- NOTE | 2016-06-23 13:05 | NUR ---
AMBULATING THE ROOM TALKING ON HER PHONE. STATES "I DON'T KNOW WHAT IS TAKING THE DR SO LONG TO DISCHARGE ME. I CAN JUST WALK OUT." EXPLAINED THAT WE HAD A CALL IN TO THE DR AND SOON HE WROTE THE DISCHARGE ORDERS WE WOULD BE WORKING ON THE PAPERWORK. SHE WAS PLEASANT IN DEALING WITH THIS NURSE. STATES UNDERSTANDING.
--- NOTE | 2016-06-23 13:10 | NUR ---
Spoke to patient that we would discharge her as soon as we had the ok from her primary care admitting physician. Pt gave me a hug and said ok.
--- NOTE | 2016-06-23 13:30 | NUR ---
Pt on phone with her she came to the edge of her door way. She had the phone on the speaker and the was at the physician office trying to get her discharged. She gave the phone to me and I explained to her and her husban that we would be able to discharge as soon as the physican gave us the order. The patient pointed at me saying he will not leave the that office until he has a discharge. Wanting me to tell him. I handed the phone to the patient to let her continue her conversation with her .
--- NOTE | 2016-06-23 13:40 | NUR ---
Rcd call from administration that Mrs. Gaviria was there. I went to administration to explain to him that we would discharge as soon as we had an order from the physician.
[2016-06-23] MEDS ORDERED: PROTONIX40 MG PO (13:42)
--- NOTE | 2016-06-23 14:30 | NUR ---
WENT OVER DISCHARGE INSTRUCTIONS AND STATES UNDERSTANDING. GAVE THE PRESCRIPTION AND INSTRUCIONS TO CALL DR. JEAN BAPTISTE FOR AN APPOINTMENT. VERIFIES THAT SHE WILL FOLLOW UP AND CALLED AND ARRANGED FOR APPOINTMENT. ALL ARTICLES REMOVED FROM ROOM.
--- NOTE | 2016-06-23 14:35 | NUR ---
PT DISCHARGED VIA WHEELCHAIR TO HOME WITH AT SIDE.
--- NOTE | 2016-06-27 12:04 | OP ---
PATIENT NAME: ADEN ROBERT MEDICAL RECORD: [id number] :46 LOCATION:[facility] ADMISSION DATE:06/19/16 SURGEON: MAGUI WILLIS DO DATE OF OPERATION: 06/21/2016 PROCEDURE: Push enteroscopy to approximately 30-40 cm in the jejunum with biopsies. ENDOSCOPIST: Magui Willis DO SCOPE: Olympus video pediatric colonoscope. MEDICATIONS: 100 mg of propofol IV per anesthesia. INDICATION FOR PROCEDURE: Abdominal pain, anorexia, weight loss, early satiety, and rule out obstruction. FINDINGS: Informed consent was given. The patient was made comfortable with the above medication. After reaching an adequate level of sedation, the patient was placed on her left side. The scope was then advanced under direct visualization through the mouth to approximately 30-40 cm in the jejunum. The upper, middle and distal thirds of the esophagus appeared normal. There was some evidence of esophagitis right at the GE junction just superior to a hiatal hernia. The scope was advanced through this area into the stomach and retroflexed to view the cardia where a small to medium size sliding hiatal hernia was visible. The scope was straightened out and advanced through the body and antrum of the stomach. The entire stomach had some evidence of gastritis with the appearance of some granularity and some sclerosis. There was some friability as well. Two random biopsies were taken and sent for histology. The scope was advanced through the pylorus into the duodenum where the mucosa appeared normal throughout the bulb, first, second, third and fourth portions of the duodenum. The scope was advanced into the jejunum approximately 30-40 cm without abnormalities visualized. The scope was then withdrawn from the patient. The patient tolerated the procedure well and there were no complications. ESTIMATED BLOOD LOSS: Less than 3 cc. IMPRESSION: 1. Esophagitis. 2. Gastritis. 3. Abdominal pain along with nausea and vomiting, anorexia, and abnormal weight loss. PLAN AND RECOMMENDATIONS: 1. Return to floor when recovery parameters are met. 2. Continue supportive care with antiemetics and IV fluids with replacement of electrolytes as necessary. 3. Consider small bowel follow through if no improvement with nausea and vomiting over the next 24 hours. 3. Continue Protonix IV. 4. Consider liquid diet as tolerated with a possibility of needing parenteral nutrition if things do not improve from an oral intake standpoint over the next 24-48 hours. OPERATIVE REPORT [id number] ADEN ROBERT TRANSINT:[id number] Voice Confirmation ID: [id number] DOCUMENT ID: [id number] MAGUI WILLIS DO at 1204 CC: [id number] DICTATION DATE: 06/21/161801 ENVIRONMENTAL HEALTH AIDE: 06/22/16 0125 DIS IN 06/23/16 [place] [id number] [place] [id number]
--- NOTE | 2016-07-04 07:10 | HP ---
PATIENT: ADEN ROBERT MEDICAL RECORD: [id number] ACCOUNT: [id number] LOCATION:[facility]1218 : 46 ADMISSION DATE: 06/19/16 HISTORY AND PHYSICAL EXAMINATION CHIEF COMPLAINT: Nausea, vomiting, and abdominal pain. HISTORY OF PRESENT ILLNESS: She is a 71-year-old female, who has a history of nonalcoholic chronic pancreatitis, has a history of 14 x 12 cm cystic lesion in the tail of the pancreas. She underwent an endoscopic ultrasound with aspiration of the cyst, but negative for malignancy. Follow up CT scan in 2014 showed persistent cystic lesion. 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 She also has a history of rectocele, cystocele and enterocele, which have contributed to some difficulty with constipation. She has maintained a weight of around 100 pounds within the last week or so. Last several weeks, has lost more weight ____ keep any solids or liquids down even nauseated and throwing up with any food. She also has past medical history that is significant for chronic low back pain, headaches. She has a history of an appendectomy, bilateral tubal ligation, breast augmentation, vaginal hysterectomy, has a history of sick sinus syndrome with pacemaker implantation in the past. Her only med at home include Fiorinal p.r.n. and lorazepam p.r.n. FAMILY HISTORY: Father had a cardiac arrhythmia and grandmother with diabetes. SOCIAL HISTORY: She does smoke about a quarter to half pack of cigarettes a day. Denies alcohol or drug use. She is . She did have a biopsy of her thyroid as well that was done in [address] Cervantes that was benign. REVIEW OF SYSTEMS: CONSTITUTIONAL: Weight loss, 10 pounds over the last 6 months or so. She denies any visual or auditory changes. HEENT: No sore throat. Does complain of some dysphagia with feels like tightness, difficulty swallowing and then nausea and vomiting. CARDIOPULMONARY: She denies chest pain or palpitations. Denies any orthopnea. No cough. GASTROINTESTINAL: Abdominal pain, mostly mid epigastric, nausea and vomiting. She does have chronic loose stools, but also has trouble because of the enterocele with defecation. MUSCULOSKELETAL: Chronic low back and some chronic knee and hip pain as well. PHYSICAL EXAMINATION: VITAL SIGNS: Today, she was afebrile, pulse 60, respirations 16, blood pressure 120/80. HEENT: Unremarkable except for some dry oral mucosa. NECK: Supple. No JVD or adenopathy. HEART: Had a regular rate and rhythm. No murmurs or rubs. LUNGS: Clear with no rhonchi, rales or wheezing. ABDOMEN: Tender in the midepigastrium to palpation. Normal bowel sounds. No rebound or guarding. EXTREMITIES: No edema, clubbing, or cyanosis. LABORATORY DATA: Her white count was 9000. No other labs were drawn in the HISTORY AND PHYSICAL [id number] ADEN ROBERT office. At this point, we are going to admit the patient. We will do another CT of her abdomen and pelvis. Lab work, consult GI as patient's family's request. The had seen Dr. Vasquez recently and asked for him to see her as well due to the history of neuroendocrine tumor, although no evidence of metastasis. We will see what the CT shows, but may end up ____ hem/onc to consult again. We also may need to address some form of alternative nutrition for her such as a PEG or G-tube if she has had chronic issues with weight loss and now has gotten cachectic enough that it is becoming a health tissue. We will continue to follow her clinically. TRANSINT:[id number] Voice Confirmation ID: [id number] DOCUMENT ID: [id number] CAMILO JEAN BAPTISTE DO at 0710 CC: [id number] DICTATION DATE: 06/19/16 1201 POCKET BUILDER: 06/19/[address] [facility] [address] [place] [address]
== END 2016-06-23 14:35 | disposition home or self-care (01) | DRG 439 ==
LOC: D.WS 11:59
PROVIDERS: Internal Medicine Gastroenterology; ADMIT Family Medicine
PROC: 0DB98ZX Excision of Duodenum, Via Natural or Artificial Opening Endoscopic, Diagnostic (ICD-10-PCS; principal; 2016-06-21 16:00)
DX: K86.1 Other chronic pancreatitis (principal); N39.0 Urinary tract infection, site not specified; Z68.1 Body mass index [BMI] 19.9 or less, adult; K20.9 Esophagitis, unspecified; K44.9 Diaphragmatic hernia without obstruction or gangrene; K29.70 Gastritis, unspecified, without bleeding; R68.81 Early satiety; R63.0 Anorexia; Z95.0 Presence of cardiac pacemaker; Z72.0 Tobacco use

== ENCOUNTER → 2017-01-02 09:31 | Outpatient (CLI) | payer MEDICARE, BC ==
[2016-06-20 10:55] VITALS: BMI 17.2
[~2017-01-02 09:31] MED LIST changes: +PROTONIX40 MG PO
== END | disposition home or self-care (01) ==
LOC: D.RAD 09:31
DX: R13.10 Dysphagia, unspecified (principal); R11.2 Nausea with vomiting, unspecified; R10.84 Generalized abdominal pain; R63.4 Abnormal weight loss

== ENCOUNTER 2017-01-15 10:03 | Day surgery (SDC) | payer MEDICARE, BC ==
[2017-01-15 11:04] VITALS: BP 120/54; BMI 16.8
[2017-01-15 11:31] LABS: HEMATOCRIT 38.8 % (36.0-48.0); HEMOGLOBIN 12.9 g/dL (12-16); MCH 31.6 pg (26.0-34.0); MCHC 33.2 g/dL (31.0-37.0); MCV 95.1 fL (80.0-100.0); MEAN PLATELET VOLUME 10.3 fL (7.4-10.4); RBC 4.08 10x6/uL (4.00-5.40); RDW 14.7 % (11.5-14.5); WBC 8.7 10x3/uL (4.8-10.8)
--- NOTE | 2017-01-15 13:28 | NUR ---
DR. WILLIS IN ROOM TALKING WITH PT.
--- NOTE | 2017-01-15 13:50 | NUR ---
LIQ SERVED AND TOLERATED.
--- NOTE | 2017-01-15 14:07 | NUR ---
IV D/C'D CATH INTACT.
--- NOTE | 2017-01-15 14:20 | NUR ---
D/C INSTRUCTIONS EXPLAINED TO PT. VOICED UNDERSTANDING. COPIES OF ALL GIVEN, WELL WRITTEN RX FOR BATSHEVA PER DR. WILLIS.
--- NOTE | 2017-01-15 14:37 | NUR ---
D/C'D HOME VIA W/C TO PRIVATE CAR.
--- NOTE | 2017-01-15 14:37 | NUR ---
CALLED DR. HENDERSON'S OFFICE RE APPT. WAS TOLD "WE DO NOT TREAT GASTROPARESIS".
--- NOTE | 2017-01-15 15:19 | NUR ---
PER DR. WILLIS PT NEEDS F/U RE CYSTOCELE, RECTOCELE. THEIR OFFICE WILL CONTACT PT. PT ADVISED.
--- NOTE | 2017-01-17 14:40 | OP ---
PATIENT NAME: SWAPNA ROBERT MEDICAL RECORD: [id number] :47 LOCATION:[facility] ADMISSION DATE: SURGEON: MAGUI WILLIS DO DATE OF OPERATION: 01/15/2017 PROCEDURE: EGD with biopsies. INDICATIONS FOR PROCEDURE: Generalized abdominal pain, dysphagia, nausea and vomiting, abnormal weight loss. SCOPE: [employer] video gastroscope. MEDICATIONS: Propofol 50 mg IV per anesthesia. ESTIMATED BLOOD LOSS: Minimal. COMPLICATIONS: None. FINDINGS: Informed consent was given. The patient was made comfortable with the above medication. After reaching an adequate level of sedation by slow IV push, the patient was placed on her left side. The endoscope was then advanced under direct visualization through the mouth to the second portion of the duodenum. The upper, middle, and lower thirds of the esophagus appeared normal. At the GE junction, there was some mild inflammation consistent with esophagitis. There were no breaks in the Z-line, but there were some granular appearing tissue, which appeared somewhat columnar. This had been biopsied in the past and has not been consistent with Coburn's esophagus. The endoscope was advanced beyond the GE junction and retroflexed in the stomach to view the cardia, which appeared normal. The fundus also appeared normal. Throughout the body of the stomach in the antrum and prepyloric region, there was some erythema and granularity consistent with gastritis. Random biopsies were taken to submit for histology and to rule out H. pylori. The endoscope was advanced beyond the pylorus into the duodenum where there was some blunting and atrophy of the villous mucosa in the distal bulb and second portion of the duodenum. Cold forceps biopsies were taken to submit for histology. The scope was withdrawn from the patient. The patient tolerated the procedure well and there were no complications. IMPRESSION: 1. Mild esophagitis at the gastroesophageal junction. 2. Erythema and granularity of the stomach consistent with gastritis, biopsies pending. 3. Granularity and villous blunting of the duodenal bulb and second portion of the duodenum. Biopsies are pending. PLAN AND RECOMMENDATIONS: 1. Discharge home when recovery parameters are met. 2. Follow up biopsy specimen results. 3. Gastric emptying study regarding the symptoms consistent with gastroparesis. 4. Continue antacid therapy. 5. Await gastric emptying study results for further recommendations. May consider a weeklong trial of Reglan if gastric emptying study is normal. 6. Consider repeating CT scan of the abdomen and pelvis based on severity of symptoms in light of history of neuroendocrine carcinoma of the pancreas. 7. Consider checking a fecal pancreatic elastase and fecal fat to assure that OPERATIVE REPORT [id number] SWAPNA ROBERT she is getting the appropriate amount of Creon with eating, but she is not eating much at all at this time and is losing weight. TRANSINT:[id number] Voice Confirmation ID: [id number] DOCUMENT ID: [id number] MAGUI WILLIS DO at 1440 CC: [id number] DICTATION DATE: 01/15/17 1306 [employer]OC[employer] FISHING: 01/15/17 1319 [facility] 01/15/17 [facility] [address] [place] [address]
== END 2017-01-15 15:00 | disposition home or self-care (01) ==
LOC: D.OPS 10:03
PROVIDERS: Anesthesiology
DX: R10.84 Generalized abdominal pain (principal); R13.10 Dysphagia, unspecified; R11.2 Nausea with vomiting, unspecified; R63.4 Abnormal weight loss; K20.9 Esophagitis, unspecified; Z01.812 Encounter for preprocedural laboratory examination; F17.200 Nicotine dependence, unspecified, uncomplicated; K21.9 Gastro-esophageal reflux disease without esophagitis

== ENCOUNTER → 2017-06-21 12:26 | Outpatient (CLI) | payer MEDICARE, BC | END | disposition home or self-care (01) | LOC: D.CT 12:26 | DX: D72.829 Elevated white blood cell count, unspecified (principal); C25.2 Malignant neoplasm of tail of pancreas ==